=== PATIENT | female | born 1990 | race Caucasian/White ===

== ENCOUNTER 2018-08-03 06:40 | Emergency (ER) | payer SELFPAY ==
[2018-08-03] MEDS ORDERED: DIPHENHYDRAMINE HCL 50 MG/ML VIAL IVP ONE (06:51)
[2018-08-03] MEDS ORDERED: KETOROLAC 30 MG/ML VIAL IVP ONE (06:51)
[2018-08-03] MEDS ORDERED: METOCLOPRAMIDE HCL 10 MG/2 ML VIAL IVP ONE (06:51)
--- NOTE | 2018-08-03 06:58 | Emergency Department Record ---
History of Present Illness - General Source: Patient Mode of Arrival: Ambulatory Limitations: No limitations - History of Present Illness Initial comments: 27 yo female presents to ED for evaluation of right ear pain that was described as sharp, radiates to the head. Patient reports that her pain symptoms began last night, but upon entering the hospital this morning, worsened into a full- blown migraine headache. Patient reports similar symptoms related to migraines several years ago, describes visual symptoms that result in headache. Patient denies change in hearing, denies pain with palpation of the ear, and patient denies fevers, chills, or recent illness. Patient does report a history of TMJ as well. MD complaint: Ear pain Onset/Timin -: Hour(s) Location: R ear Severity: Moderate Quality: Aching Consistency: Constant Improves with: None Worsens with: None <LAMONTE CHRIS - Last Filed: 08/03/18 06:52> <JOSE SMITH - Last Filed: 08/03/18 07:41> - General Chief complaint: ENT Stated complaint: EAR PAIN Time Seen by Provider: 08/03/18 06:47 - Related Data Home Medications Medication Instructions Recorded Confirmed Last Taken Acetaminop W/ Codeine 300/30Mg 1 tab PO Q6H PRN 08/03/18 08/03/18 Unknown [Tylenol #3] Levothyroxine Sodium [Synthroid] 225 mcg PO DAILY 08/03/18 08/03/18 Unknown Pantoprazole Sodium [Protonix] 40 mg PO DAILY 08/03/18 08/03/18 Unknown Promethazine HCl [Phenergan] 25 mg PO TID PRN 08/03/18 08/03/18 Unknown Allergies Allergy/AdvReac Type Severity Reaction Status Date / Time latex Allergy RASH Verified 08/03/18 06:52 propranolol Allergy ITCHING Verified 08/03/18 06:52 cefadroxil [From Duricef] AdvReac NAUSEA AND Verified 08/03/18 06:52 VOMITING morphine AdvReac NAUSEA AND Verified 08/03/18 06:52 VOMITING Sulfa (Sulfonamide AdvReac NAUSEA AND Verified 08/03/18 06:52 Antibiotics) VOMITING Review of Systems Constitutional: Denies: Chills, Fever, Malaise, Night sweats Eyes: Denies: Eye discharge, Eye pain ENT: Reports: Ear pain. Denies: Congestion, Epistaxis Respiratory: Denies: Cough, Dyspnea Cardiovascular: Denies: Chest pain, Dyspnea on exertion Endocrine: Denies: Fatigue, Heat or cold intolerance Gastrointestinal: Denies: Abdominal pain, Nausea, Vomiting Genitourinary: Denies: Incontinence, Retention Musculoskeletal: Denies: Arthralgia, Back pain, Gout, Joint swelling Skin: Denies: Bruising, Change in color Neurological: Reports: Headache. Denies: Abnormal gait, Confusion, Seizure Psychiatric: Denies: Anxiety Hematological/Lymphatic: Denies: Anemia, Blood Clots <LAMONTE CHRIS - Last Filed: 08/03/18 06:52> Physical Exam - General General Appearance: Alert, Oriented x3, Cooperative, Mild distress Limitations: No limitations - Head Head exam: Atraumatic, Normocephalic, Normal inspection Head exam detail: negative: Abrasion, Contusion, Laughlin's sign, General tenderness, Hematoma, Laceration - Eye Eye exam: Normal appearance. negative: Conjunctival injection, Periorbital swelling, Periorbital tenderness, Scleral icterus - ENT ENT exam: TM's normal bilaterally Ear exam: negative: Auricular hematoma, Auricular trauma, External canal tenderness Nasal Exam: negative: Active bleeding, Discharge, Dried blood, Foreign body Mouth exam: negative: Drooling, Laceration, Muffled voice, Tongue elevation Teeth exam: negative: Dental caries, Dental tenderness #, Fractured tooth # Throat exam: negative: Tonsillar erythema, Tonsillomegaly, Tonsillar exudate, R peritonsillar mass, L peritonsillar mass - Neck Neck exam: Normal inspection. negative: Meningismus, Tenderness - Respiratory Respiratory exam: Normal lung sounds bilaterally. negative: Rales, Respiratory distress, Rhonchi, Stridor - Cardiovascular Cardiovascular Exam: Regular rate, Normal rhythm, Normal heart sounds - GI/Abdominal GI/Abdominal exam: Soft. negative: Rebound, Rigid, Tenderness - Rectal Rectal exam: Deferred - exam: Deferred - Extremities Extremities exam: Normal inspection. negative: Calf tenderness, Pedal edema, Tenderness - Back Back exam: Denies: CVA tenderness (R), CVA tenderness (L) - Neurological Neurological exam: Alert, Normal gait, Oriented X3 - Psychiatric Psychiatric exam: Normal affect, Normal mood - Skin Skin exam: Normal color. negative: Abrasion Type of lesion: negative: abrasion <LAMONTE CHRIS - Last Filed: 08/03/18 06:52> Course Vital Signs 08/03/18 06:45 Temperature 97.4 F L Pulse Rate [ 72 Pulse Ox Probe] Respiratory 24 Rate Blood Pressure 136/86 [Left Arm] Pulse Ox 98 - Reevaluation(s) Reevaluation #1: 08/03/18 06:57 Case was discussed with on-coming provider, will reassess following migraine therapy for final disposition. <LAMONTE CHRIS - Last Filed: 08/03/18 06:52> Vital Signs 08/03/18 06:45 Temperature 97.4 F L Pulse Rate [ 72 Pulse Ox Probe] Respiratory 24 Rate Blood Pressure 136/86 [Left Arm] Pulse Ox 98 - Reevaluation(s) Reevaluation #2: The patient was rechecked. She is beginning to feel much better. The ENT examination was rechecked. No abnormalities visible in the ear, mastoid area, throat, tonsils, teeth. Normal examination. We discussed DC, reasons to return in the next 1-2 days for a recheck if not improving and sooner if worse. 08/03/18 07:40 <JOSE SMITH - Last Filed: 08/03/18 07:41> Disposition <LAMONTE CHRIS - Last Filed: 08/03/18 06:52> Disposition: Discharge Time of Disposition: 07:41 <JOSE SMITH - Last Filed: 08/03/18 07:41> Clinical Impression: Otalgia Qualifiers: Laterality: right Qualified Code(s): H92.01 - Otalgia, right ear Disposition: Home, Self-Care Condition: (1) Good Instructions: Migraine Headache (ED), Earache (ED) Additional Instructions: Call your doctor for the next available follow up appointment Return to the ER for a recheck if worse, any new concerns or questions Take the prescriptions provided as directed Review this ER visit and the tests performed with your family doctor Forms: Patient Portal Access Quality - Blood Pressure Screening Does Patient Have Any of the Following: No Blood Pressure Classification: Pre-Hypertensive BP Reading Systolic Measurement: 136 Diastolic Measurement: 86 Screening for High Blood Pressure: < Pre-Hypertensive BP, F/U Documented > [ [id number]] <LAMONTE CHRIS - Last Filed: 08/03/18 06:52> - Quality Measures Quality Measures: N/A - Blood Pressure Screening Does Patient Have Any of the Following: No Blood Pressure Classification: Pre-Hypertensive BP Reading Systolic Measurement: 136 Diastolic Measurement: 86 Screening for High Blood Pressure: < Pre-Hypertensive BP, F/U Documented > [ G8950] Pre-Hypertensive Follow-up Interventions: Referral to alternative/primary care provider. <JOSE SMITH - Last Filed: 08/03/18 07:41>
[2018-08-03] MEDS ORDERED: 0.9 % SODIUM CHLORIDE 1000ML 1,000 ML IV SCH (07:00)
== END 2018-08-03 08:08 | disposition home or self-care (01) ==
LOC: ER 06:40
DX: H92.01 Otalgia, right ear (principal); M54.2 Cervicalgia; R51 Headache
CPT/HCPCS: 99284 ×2; 96374; 96375; J1885; J1200; J2765; J7030